=== PATIENT | male | born 1945 | race Caucasian/White ===

== ENCOUNTER → 2018-07-05 | Outpatient (CLI) | payer OTHER ==
[~2018-07-05] MED LIST: BLOOD PRESSURE; CHOLESTEROL; CIPRO500 M1 PO; DIABETIC; FLEXERIL PO; LEVOTHYROXINE 0.15MG PO; LISINOPRIL20 MG PO; MIRALAX17 GM PO; NORVASC5 MG PO; NYAMYC15 GM TOP; OXYCONTIN10 M1 PO; PROTONIX40 M1 PO; SERTRALINE HCL50 MG PO; TESTONE CI200 MG/1 M IM; TRIAMCINOLONE A80 G2 TOP; VITAMIN D3400 UNIT PO
[2018-07-05 14:09] LABS: ABSOLUTE BASOPHILS 0.1 thou/uL (0.0-0.2); ABSOLUTE EOSINOPHILS 0.2 thou/uL (0.0-0.7); ABSOLUTE LYMPHOCYTES 2.4 thou/uL (0.8-5.3); ABSOLUTE MONOCYTES 0.8 thou/uL (0.0-1.2); ABSOLUTE NEUTROPHILS 6.1 thou/uL (1.6-8.1); BASOPHILS 1.1 %; EOSINOPHILS 1.7 %; HEMATOCRIT 42.8 % (42.0-52.0); HEMOGLOBIN 14.1 gm/dL (14.0-18.0); LYMPHOCYTES 25.1 %; MCHC 32.9 g/dL (28.0-37.0); MCV 69.8 fL (80.0-100.0); MONOCYTES 8.5 %; MPV 7.7 fl. (7.2-11.1); NUCLEATED RBCS 0 /100WBC; PLATELET COUNT* 382 thou/uL (150-400); POLYS 63.6 %; RBC 6.14 mil/uL (4.50-6.00); RDW-CV 18.3 % (10.5-14.5); WBC 9.6 thou/uL (4.0-11.0)
[2018-07-05 14:17] LABS: PROTIME 10.7 Seconds (9.20-11.50)
[2018-07-05 14:25] LABS: ALBUMIN 3.5 g/dL (3.4-5.0); CALCIUM 8.8 mg/dL (8.5-10.1); CREATININE 1.3 mg/dL (0.6-1.3); TOTAL BILIRUBIN 0.3 mg/dL (<0.1-1.0); TOTAL PROTEIN 7.2 g/dL (6.4-8.2)
[2018-07-05 14:29] LABS: ANISOCYTOSIS 1+; MICROCYTES 1+; PLATELET ESTIMATE ADEQUATE
== END ==
LOC: M.RAD 13:41
PROVIDERS: Nurse Practitioner Adult Health
DX: K80.00 Calculus of gallbladder with acute cholecystitis without obstruction (principal); R94.5 Abnormal results of liver function studies; R13.10 Dysphagia, unspecified; Z87.898 Personal history of other specified conditions; Z98.890 Other specified postprocedural states; T85.590A Other mechanical complication of bile duct prosthesis, initial encounter

== ENCOUNTER → 2020-01-12 | Outpatient (CLI) | payer OTHER | LOC: M.CT 09:00 | PROVIDERS: ATTEND Nurse Practitioner Family | DX: Z13.6 Encounter for screening for cardiovascular disorders (principal) ==

== ENCOUNTER → 2020-01-14 | Outpatient (CLI) | payer OTHER | LOC: M.LAB 15:22 | PROVIDERS: ATTEND Internal Medicine Gastroenterology | DX: Z01.812 Encounter for preprocedural laboratory examination (principal); Z11.59 Encounter for screening for other viral diseases; R13.10 Dysphagia, unspecified ==

== ENCOUNTER → 2021-03-10 | Outpatient (CLI) | payer OTHER ==
[2021-03-10 16:17] LABS: CREATININE 1.2 mg/dL (0.6-1.3)
== END ==
LOC: M.CT 15:17
PROVIDERS: ATTEND Nurse Practitioner Family
DX: I77.810 Thoracic aortic ectasia (principal); R91.8 Other nonspecific abnormal finding of lung field